=== PATIENT | female | born 1970 | race Caucasian/White ===

== ENCOUNTER 2019-02-18 12:03 | Emergency (ER) | payer OTHER, SELFPAY ==
[2019-02-18 12:14] VITALS: BP 109/59; PULSE 104; RESP 14; TEMP 36.6; O2SAT 100; BMI 23.3
[2019-02-18 12:53] VITALS: BP 114/70; PULSE 95; RESP 17; O2SAT 100
--- NOTE | 2019-02-18 13:41 | ED.ANXIETY ---
HPI - Anxiety <AMRIT Tejada - Last Filed: 02/18/19 23:11> General Chief Complaint: Anxiety Stated Complaint: Anxiety Time Seen by Provider: 02/18/19 12:27 Source: patient Limitations: no limitations History of Present Illness HPI narrative: 48-year-old female with a history of significant MS, stated that she took her medications as directed in the morning, about 30 minutes later she started having hot and cold flashes, anxiety, and a sensation that her eyeballs were rolling in the back of her head/not tracking the other. Patient stated the feelings lasted for about 20 minutes, EMS arrived and administered 1 mg of Versed which she states relieved all of her symptoms. She denies having any symptoms at this time. Denies increased weakness, fevers, vision loss, blurred vision, spots in her vision, difficulty breathing, hives, shortness of breath, facial droop, change in speech, difficulty swelling, nausea, vomiting, chest pain, shortness of breath, change in bowel or bladder problems, headaches, falls, or recent trauma. She states she has a follow-up with her neurologist at [facility] in about 1 week for a recheck on her MS. Patient also states she has been taking the same dose of Ampyra for MS for the past few years. She also states that she was given a very small dose of lithium by a slide fasteners inspector doctor to help with nerve conduction, she states she has been taking this for 6 months. She also reports she has a history of anxiety, but these symptoms felt slightly different than her usual anxiety. Related Data Home Medications Medication Instructions Recorded Confirmed VITAMIN D 400 unit PO #0 01/14/16 albuterol sulfate [ProAir 1 inh INHALATION PRN PRN 02/18/19 02/18/19 RespiClick] montelukast 10 mg PO DAILY 02/18/19 02/18/19 Previous Rx's Medication Instructions Recorded nitrofurantoin macrocrystal 100 mg PO Q12H 5 Days #10 cap 02/18/19 Allergies Allergy/AdvReac Type Severity Reaction Status Date / Time No Known Drug Allergies Allergy Verified 02/18/19 12:51 Review of Systems <AMRIT Tejada - Last Filed: 02/18/19 23:11> Review of Systems Narrative: REVIEW OF SYSTEMS: GENERAL: Complains of hot and cold flashes, see PI. HENT: No head trauma, hearing loss or sore throat. EYES: No loss of vision, double vision, eye pain, or irritation. CARDIOVASCULAR: No chest pain or syncope. RESPIRATORY: No shortness of breath or cough. GASTROINTESTINAL: No nausea, vomiting, diarrhea, or constipation. GENITOURINARY: No flank pain or dysuria. MUSCULOSKELETAL: No pain, weakness, or deformities. INTEGUMENTARY: No rash, lesions, or pruritus. NEURO: Complains of sensations in her eyes, see HPI. PSYCH: No behavior or mood changes. PFSH <AMRIT Tejada - Last Filed: 02/18/19 23:11> Medical History Multiple sclerosis (Acute) Social History Smoking Status: Never smoker Social History Smoking Status: Never smoker Exam <AMRIT Tejada - Last Filed: 02/18/19 23:11> Initial Vital Signs Initial Vital Signs: Vital Signs Temperature 97.9 F 02/18/19 12:14 Pulse Rate 104 H 02/18/19 12:14 Respiratory Rate 14 02/18/19 12:14 Blood Pressure 109/59 L 02/18/19 12:14 Pulse Oximetry 100 02/18/19 12:14 PHYSICAL EXAMINATION: GENERAL: Well groomed, alert, and cooperative. Answers questions promptly and appropriately. Vital signs noted. HENT: Normocephalic, atraumatic. Ear canals patent. Oral mucosa is pink and moist. EYES: PERRLA, EOMIs, Conjunctiva pink, sclera white, no periorbital swelling. CHEST: Normal to inspection and without deformities. CARDIOVASCULAR: S1 and S2 sounds normal. Regular rate and rhythm, no murmurs, clicks, or bruits. No pedal edema. RESPIRATORY: Normal respiratory rate, trachea midline, airway patent. No stridor, nasal flaring or accessory muscle use. Lungs are clear in all [place] without wheeze, rhonchi, or crackles. GASTROINTESTINAL: Bowel sounds normoactive. Abdomen is soft and non-tender. No organomegaly. MUSCULOSKELETAL: Patient unable to ambulate due to MS-this is patient has normal. Significant weakness in lower extremities bilaterally, this is also patient's normal. EXTREMITIES: CMS intact. SKIN: Warm, dry, soft, appropriate color for ethnicity. No lesions, rashes, or wounds. NEURO: Alert and Oriented X 3. CN III-XII grossly intact. Good coordination. No ataxia, or sensory deficits, or cognitive issues. PSYCH: Appropriate affect and mood. <Yelena Etienne MD - Last Filed: 02/21/19 01:59> Initial Vital Signs Initial Vital Signs: Vital Signs Temperature 97.9 F 02/18/19 12:14 Pulse Rate 104 H 02/18/19 12:14 Respiratory Rate 14 02/18/19 12:14 Blood Pressure 109/59 L 02/18/19 12:14 Pulse Oximetry 100 02/18/19 12:14 Scores <AMRIT Tejada - Last Filed: 02/18/19 23:11> NIH Stroke Scale Level of Conciousness: Alert, keenly responsive Ask month/age: Answers both questions correctly. Best gaze horizontal: Normal Visual jackson: No visual loss Facial palsy: Normal symetrical movement Left arm drift: No drift for full 10 sec Right arm drift: No drift for full 10 sec Limb ataxia: Absent Sensory on face/arms/legs: Normal, no sensory loss Best language: No aphasia, normal Dysarthria: Normal Extinction or inattention: No abnormality Course <AMRIT Tejada - Last Filed: 02/18/19 23:11> Course Course Narrative: Patient symptoms resolved completely after EMS administered Versed. She did not have any symptoms during her emergency department stay. Orders Ordered: Discontinued Medications Sodium Chloride (Normal Saline 0.9%) 1,000 mls @ 1,000 mls/hr IV BOLUS ONE Stop: 02/18/19 14:37 Last Infusion: 02/18/19 16:45 Dose: 0 mls/hr Documented by: Admin: 02/18/19 15:19 Dose: 1,000 mls/hr Documented by: ROSITA Alves Consultation #1: Patient staffed with Dr. Etienne. Vital Signs Vital signs: Vital Signs - 8 hr 02/18/19 15:22 02/18/19 17:07 Pulse Rate 91 H 84 Respiratory Rate 17 18 Blood Pressure [Right Arm] 114/63 108/82 Pulse Oximetry 100 98 <Yelena Etienne MD - Last Filed: 02/21/19 01:59> Orders Ordered: Discontinued Medications Sodium Chloride (Normal Saline 0.9%) 1,000 mls @ 1,000 mls/hr IV BOLUS ONE Stop: 02/18/19 14:37 Last Infusion: 02/18/19 16:45 Dose: 0 mls/hr Documented by: Admin: 02/18/19 15:19 Dose: 1,000 mls/hr Documented by: ROSITA Vital Signs Vital signs: Vital Signs - 8 hr 02/18/19 15:22 02/18/19 17:07 Pulse Rate 91 H 84 Respiratory Rate 17 18 Blood Pressure [Right Arm] 114/63 108/82 Pulse Oximetry 100 98 MDM - Anxiety <AMRIT Tejada - Last Filed: 02/18/19 23:11> Medical Records Attestation: I reviewed the patient's medical records. Lab Data Attestation: I reviewed the patient's lab results. Result diagrams: 02/18/19 13:47 02/18/19 13:47 Labs: Lab Results 02/18/19 02/18/19 02/18/19 Range/Units 13:47 13:47 13:47 WBC 17.8 H (4.5-11.0) X10^3/uL RBC 5.20 (4.0-5.2) X10^6/uL Hgb 15.6 (12.0-16.0) g/dL Hct 45.5 (36-46) % MCV 87.4 (80-100) fL MCH 30.0 (26-34) PG MCHC 34.4 (30-36) % RDW 13.3 (11.6-14.8) % Plt Count 196 (150-400) X10^3/uL Neut % (Auto) 92.6 H (50-75) % Lymph % (Auto) 3.2 L (25-40) % [place] % (Auto) 3.8 (3-14) % Eos % (Auto) 0.0 L (2-4) % Baso % (Auto) 0.4 (0-2) % Neut # (Auto) 04599 H (6119-4796) /uL Lymph # (Auto) 600 L (3057-3750) /uL [place] # (Auto) 700 (0-900) /uL Eos # (Auto) 0 (0-450) /uL Baso # (Auto) 100 (0-100) /uL Sodium 141 (137-145) mmol/L Potassium 4.1 (3.4-5.1) mmol/L Chloride 105 (98-107) mmol/L Carbon Dioxide 22 (22-32) mmol/L BUN 15 (7-17) mg/dL Creatinine 0.60 (0.52-1.04) mg/dL Estimated GFR > 60.0 (>60) mL/min BUN/Creatinine Ratio 25.0 H (6-22) Glucose 88 (70-100) mg/dL Calcium 9.7 (8.4-10.2) mg/dL Total Bilirubin 2.0 H (0.2-1.3) mg/dL AST 18 (14-36) IU/L ALT 14 (9-52) IU/L Alkaline Phosphatase 54 (38-126) U/L Total Protein 7.6 (6.3-8.2) g/dL Albumin 4.6 (3.5-5.0) g/dL Globulin 3.0 (1.7-4.1) g/dL Albumin/Globulin Ratio 1.5 (1.0-2.8) Urine RBC (0-5/HPF) Urine WBC (0-5/HPF) Ur Squamous Epith Cells (0-5/HPF) Urine Bacteria (None) Ur Culture Indicated? [place] < 0.2 L (0.6-1.2) mmol/L 02/18/19 Range/Units 15:47 WBC (4.5-11.0) X10^3/uL RBC (4.0-5.2) X10^6/uL Hgb (12.0-16.0) g/dL Hct (36-46) % MCV (80-100) fL MCH (26-34) PG MCHC (30-36) % RDW (11.6-14.8) % Plt Count (150-400) X10^3/uL Neut % (Auto) (50-75) % Lymph % (Auto) (25-40) % [place] % (Auto) (3-14) % Eos % (Auto) (2-4) % Baso % (Auto) (0-2) % Neut # (Auto) (7553-5690) /uL Lymph # (Auto) (3489-7032) /uL [place] # (Auto) (0-900) /uL Eos # (Auto) (0-450) /uL Baso # (Auto) (0-100) /uL Sodium (137-145) mmol/L Potassium (3.4-5.1) mmol/L Chloride (98-107) mmol/L Carbon Dioxide (22-32) mmol/L BUN (7-17) mg/dL Creatinine (0.52-1.04) mg/dL Estimated GFR (>60) mL/min BUN/Creatinine Ratio (6-22) Glucose (70-100) mg/dL Calcium (8.4-10.2) mg/dL Total Bilirubin (0.2-1.3) mg/dL AST (14-36) IU/L ALT (9-52) IU/L Alkaline Phosphatase (38-126) U/L Total Protein (6.3-8.2) g/dL Albumin (3.5-5.0) g/dL Globulin (1.7-4.1) g/dL Albumin/Globulin Ratio (1.0-2.8) Urine RBC None seen (0-5/HPF) Urine WBC 10-30/hpf H (0-5/HPF) Ur Squamous Epith Cells 1-5 /hpf (0-5/HPF) Urine Bacteria Many (>30) H (None) Ur Culture Indicated? Specimen cultured [place] (0.6-1.2) mmol/L Urine Dip Bedside Urine Glucose Negative Bedside Urine Bilirubin - Negative Bedside Urine Ketone +++ 80 Urine Specific [place] 1.025 Bedside Urine Occult Blood - Negative Bedside Urine pH 6.0 Bedside Urine Protein + 30 Bedside Urine Urobilinogen +/- 1mg Bedside Urine Nitrite + Positive Bedside Urine Leukocytes + 70 Esterase MDM Narrative Medical decision making narrative: Unsure exact cause of episode differential includes UTI (positive leuks, positive nitrates, and positive bacteria in urine), medication interaction or reaction, anxiety (most likely due to immediate resolution of symptoms after VERSED, reports anxiety increasing over the past few months) , or symptoms of her multiple sclerosis (less likely due to immediate resolution of symptoms after VERsed). Less likely TIA as patient did not report any symptoms such as facial droop, difficulty speaking, difficulty swelling, or abnormal extremity weakness. Strict return precautions given and follow-up instructions discussed. Additionally, UTI was treated. <Yelena Etienne MD - Last Filed: 02/21/19 01:59> Lab Data Labs: Lab Results 02/18/19 02/18/19 02/18/19 Range/Units 13:47 13:47 13:47 WBC 17.8 H (4.5-11.0) X10^3/uL RBC 5.20 (4.0-5.2) X10^6/uL Hgb 15.6 (12.0-16.0) g/dL Hct 45.5 (36-46) % MCV 87.4 (80-100) fL MCH 30.0 (26-34) PG MCHC 34.4 (30-36) % RDW 13.3 (11.6-14.8) % Plt Count 196 (150-400) X10^3/uL Neut % (Auto) 92.6 H (50-75) % Lymph % (Auto) 3.2 L (25-40) % [place] % (Auto) 3.8 (3-14) % Eos % (Auto) 0.0 L (2-4) % Baso % (Auto) 0.4 (0-2) % Neut # (Auto) 96138 H (5403-3019) /uL Lymph # (Auto) 600 L (6752-1855) /uL [place] # (Auto) 700 (0-900) /uL Eos # (Auto) 0 (0-450) /uL Baso # (Auto) 100 (0-100) /uL Sodium 141 (137-145) mmol/L Potassium 4.1 (3.4-5.1) mmol/L Chloride 105 (98-107) mmol/L Carbon Dioxide 22 (22-32) mmol/L BUN 15 (7-17) mg/dL Creatinine 0.60 (0.52-1.04) mg/dL Estimated GFR > 60.0 (>60) mL/min BUN/Creatinine Ratio 25.0 H (6-22) Glucose 88 (70-100) mg/dL Calcium 9.7 (8.4-10.2) mg/dL Total Bilirubin 2.0 H (0.2-1.3) mg/dL AST 18 (14-36) IU/L ALT 14 (9-52) IU/L Alkaline Phosphatase 54 (38-126) U/L Total Protein 7.6 (6.3-8.2) g/dL Albumin 4.6 (3.5-5.0) g/dL Globulin 3.0 (1.7-4.1) g/dL Albumin/Globulin Ratio 1.5 (1.0-2.8) Urine RBC (0-5/HPF) Urine WBC (0-5/HPF) Ur Squamous Epith Cells (0-5/HPF) Urine Bacteria (None) Ur Culture Indicated? [place] < 0.2 L (0.6-1.2) mmol/L 02/18/19 Range/Units 15:47 WBC (4.5-11.0) X10^3/uL RBC (4.0-5.2) X10^6/uL Hgb (12.0-16.0) g/dL Hct (36-46) % MCV (80-100) fL MCH (26-34) PG MCHC (30-36) % RDW (11.6-14.8) % Plt Count (150-400) X10^3/uL Neut % (Auto) (50-75) % Lymph % (Auto) (25-40) % [place] % (Auto) (3-14) % Eos % (Auto) (2-4) % Baso % (Auto) (0-2) % Neut # (Auto) (2622-5315) /uL Lymph # (Auto) (4465-3785) /uL [place] # (Auto) (0-900) /uL Eos # (Auto) (0-450) /uL Baso # (Auto) (0-100) /uL Sodium (137-145) mmol/L Potassium (3.4-5.1) mmol/L Chloride (98-107) mmol/L Carbon Dioxide (22-32) mmol/L BUN (7-17) mg/dL Creatinine (0.52-1.04) mg/dL Estimated GFR (>60) mL/min BUN/Creatinine Ratio (6-22) Glucose (70-100) mg/dL Calcium (8.4-10.2) mg/dL Total Bilirubin (0.2-1.3) mg/dL AST (14-36) IU/L ALT (9-52) IU/L Alkaline Phosphatase (38-126) U/L Total Protein (6.3-8.2) g/dL Albumin (3.5-5.0) g/dL Globulin (1.7-4.1) g/dL Albumin/Globulin Ratio (1.0-2.8) Urine RBC None seen (0-5/HPF) Urine WBC 10-30/hpf H (0-5/HPF) Ur Squamous Epith Cells 1-5 /hpf (0-5/HPF) Urine Bacteria Many (>30) H (None) Ur Culture Indicated? Specimen cultured [place] (0.6-1.2) mmol/L Urine Dip Bedside Urine Glucose Negative Bedside Urine Bilirubin - Negative Bedside Urine Ketone +++ 80 Urine Specific [place] 1.025 Bedside Urine Occult Blood - Negative Bedside Urine pH 6.0 Bedside Urine Protein + 30 Bedside Urine Urobilinogen +/- 1mg Bedside Urine Nitrite + Positive Bedside Urine Leukocytes + 70 Esterase Discharge Plan Departure Patient Disposition: Home Clinical Impression: Urinary tract infection Qualifiers: Urinary tract infection type: acute cystitis Hematuria presence: without hematuria Qualified Code(s): N30.00 - Acute cystitis without hematuria Discharge Date/Time: 02/18/19 17:09 Instructions: DI for Urinary Tract Infection (UTI) Activity Restrictions/Additional Instructions: Thank you for entrusting me with your care today. As discussed, your white blood cell count was elevated today this may be due by you're urinary tract infection as well as your medication. I prescribed you an antibiotic, please take this as directed. If your antibiotics need to be changed based on your urine culture, you will receive a call within 2 days. Follow up with her primary care provider in the next week for re-evaluation, as well as a follow-up with your neurologist for a re-evaluation as scheduled. Return to the emergency department if he develops shortness of breath, chest pain, vision loss, increased weakness, fevers, chills, uncontrollable vomiting, or syncope. Prescriptions: New nitrofurantoin macrocrystal 100 mg capsule 100 mg PO Q12H 5 Days Qty: 10 RF: 0 No Action VITAMIN D 400 unit PO Qty: 0 RF: 0 montelukast 10 mg tablet 10 mg PO DAILY RF: 0 ProAir RespiClick 90 mcg/actuation aerosol powdr breath activated 1 inh INHALATION PRN PRN (Reason: Shortness Of Breath) RF: 0
[2019-02-18 13:59] LABS: Add Manual Diff / Slide Review NO; Basophils Absolute Auto 100 /uL (0-100); Basophils Percent Auto 0.4 % (0-2); Eosinophils Absolute Auto 0 /uL (0-450); Hematocrit 45.5 % (36-46); Hemoglobin 15.6 g/dL (12.0-16.0); Lymphocytes Absolute Auto 600 /uL (1100-4500); Lymphocytes Percent Auto 3.2 % (25-40); Mean Corpuscular HGB Conc 34.4 % (30-36); Mean Corpuscular Volume 87.4 fL (80-100); Monocytes Absolute Auto 700 /uL (0-900); Monocytes Percent Auto 3.8 % (3-14); Neutrophils Absolute Auto 16500 /uL (1500-7000); Neutrophils Percent Auto 92.6 % (50-75); Platelet Count 196 X10^3/uL (150-400); Red Cell Distribution Width 13.3 % (11.6-14.8); White Blood Cell Count 17.8 X10^3/uL (4.5-11.0)
[2019-02-18 14:10] LABS: Alanine Aminotransferase 14 IU/L (9-52); Albumin 4.6 g/dL (3.5-5.0); Albumin Globulin Ratio 1.5 (1.0-2.8); Alkaline Phosphatase 54 U/L (38-126); Aspartate Aminotransferase 18 IU/L (14-36); Blood Urea Nitrogen 15 mg/dL (7-17); Calcium 9.7 mg/dL (8.4-10.2); Carbon Dioxide 22 mmol/L (22-32); Chloride 105 mmol/L (98-107); Estimated Glomerular Filt Rate > 60.0 mL/min (>60); Glucose 88 mg/dL (70-100); HEMOLYSIS < 15 (0-50); Potassium 4.1 mmol/L (3.4-5.1); Sodium 141 mmol/L (137-145); Total Protein 7.6 g/dL (6.3-8.2)
[2019-02-18 14:24] LABS: Lithium < 0.2 mmol/L (0.6-1.2)
[2019-02-18] MEDS: SODIUM CHLORIDE 0.9% 1,000 ML 1000 ML IV (15:19)
[2019-02-18 15:22] VITALS: BP 114/63; PULSE 91; RESP 17; O2SAT 100
[2019-02-18 16:35] LABS: RBC Urine None Seen (0-5/HPF)
[2019-02-18 16:49] LABS: Bacteria Urine Many (>30); Culture Indicated Urine Specimen Cultured; Squamous Epithelial Cell Urine 1-5 /HPF (0-5/HPF); WBC Urine 10-30/HPF (0-5/HPF)
[2019-02-18 17:07] VITALS: BP 108/82; PULSE 84; RESP 18; O2SAT 98
== END 2019-02-18 17:09 | disposition home or self-care (01) ==
PROVIDERS: Emergency Provider Nurse Practitioner
DX: N30.00 Acute cystitis without hematuria (principal)
CPT/HCPCS: 36415; 80053; 80178; 81003; 81015; 85025; 87077; 87086; 87186; 96360; 99283; 99284